=== PATIENT | female | born 1935 | race Caucasian/White ===

== ENCOUNTER 2016-11-05 17:59 | Observation (INO) | payer MEDICARE, OTHER ==
[~2016-11-05] VITALS: Ht 162.6 cm; Wt 68.6 kg
[2016-11-05 18:06] VITALS: BP 189/103; PULSE 94; RESP 20; O2SAT 96
--- NOTE | 2016-11-05 18:15 | ED.REPORT ---
HPI-Trauma Minor / Fall Date of Service Nov 05, 2016 ED Provider: Amor Carbajal DO Patient is an 81 year old female who presents to the ED via EMS due to a fall that happened a week ago. The patient reports that she has had left hip pain for the past month and her right hip has been progressively worse for the past week. Patient reports that the pain is exacerbated by movement and radiates into her lower back. She has been to other EDs three times in the past month. Nursing Notes Stated Complaint: GLF Chief Complaint: Extremity Trauma Nursing Notes Reviewed: Yes Allergies: Coded Allergies: No Known Allergies (Unverified , 11/05/16) Scheduled Acetaminophen (Acetaminophen) 500 Mg Tablet 500 MG PO BIDWM Alendronate Sodium (Fosamax) 70 Mg Tablet 70 MG PO WEEKLY SUNDAYS Aspirin Chew (Aspirin Chew) 81 Mg Chew 81 MG PO QAM Bifidobacterium Infantis (Align) 4 Mg Capsule 4 MG PO DAILYWL Carbidopa/Levodopa 25-100 mg (Carbidopa/Levodopa 25-100 mg) 1 Each Tablet 2 TABLET PO Q3H 8X/DAY: 00, 03, 06, 09, 12, 15, 18, 21 Carvedilol (Carvedilol) 3.125 Mg Tablet 3.125 MG PO BIDWM Cholecalciferol (Vitamin D3) (Vitamin D3) 1,000 Unit Tab.chew 1,000 UNIT PO QAM Clopidogrel (Clopidogrel) 75 Mg Tablet 75 MG PO QAM Entacapone (Entacapone) 200 Mg Tablet 200 MG PO Q3H 8X/DAY: 00, 03, 06, 09, 12, 15, 18, 21 Famotidine (Famotidine) 20 Mg Tablet 20 MG PO BIDWM Fentanyl 50 mcg/hr Patch (Fentanyl 50 mcg/hr Patch) 50 mcg/hr Patch.td72 1 PATCH TRANSDERM Q3D Furosemide (Furosemide) 20 Mg Tab 20 MG PO QAM Leflunomide (Leflunomide) 20 Mg Tablet 20 MG PO DAILYWL Multivit with Calcium,Iron,Min (Therapeutic M) 1 Each Tablet 1 EACH PO QAM Oxycodone HCl/Acetaminophen 5-325 (Endocet 5-325) 1 Each Tablet 1 TABLET PO HS Polyethylene Glycol 3350 (Polyethylene Glycol 3350) 17 Gm Powd.pack 17 GM PO QAM Ropinirole ER (Ropinirole XL) 8 Mg Tablet 8 MG PO BIDWM Sennosides (Senna) 8.6 Mg Tablet 8.6 MG PO BID Tizanidine (Tizanidine) 4 Mg Tablet 4 MG PO HS Trazodone (Trazodone) 100 Mg Tablet 50 MG PO HS Scheduled PRN Nystatin (Nystop) 60 Gm Powder 1 APPLIC TP BID PRN PRN RASH General Time Seen by MD: 18:14 Chief Complaint Fall Hx Obtained From: Patient Arrived By: Ambulance Onset Occurred: 1 week ago Symptom Duration: Since onset Caused by: Fall on ground Location: Hip left Hip right Quality: Painful Severity: Current: Moderate Recent Healthcare: Recent doctor visit, Recent hospitalization Past Medical History Past Medical History hip pain Smoking History Unknown if Ever Smoker Social History Other Social History: Good social support, Ambulatory Status Independent Review of Systems Constitutional: Denies: Chills, Fever Respiratory: Denies: Non-productive cough, Shortness of breath, Wheezing Musculoskeletal: Reports: Back pain, Extremity pain Neurologic: Reports: Problem walking, Denies: Numbness, Weakness Complete sys rev & neg: except as marked. Cardiovascular: Denies: Chest pain Physical Exam Initial Vital Signs Vital Signs (First) Date Time Temp Pulse Resp B/P Pulse Ox O2 Delivery O2 Flow Rate FiO2 11/05/16 18:06 36.5 94 20 189/103 96 Room Air Initial VS: Reviewed General/Constitutional: Awake, Alert Distress / Hydration: Positive: Distress moderate Neck: Atraumatic, Supple Head / Eyes: Atraumatic, Normocephalic, PERRL, EOMI Respiratory / Chest: Atraumatic, Breath sounds NL, Breath sounds = bilat, No respiratory distress Cardiovascular: Heart rate NL, Regular rhythm, Heart sounds NL Abdomen: Atraumatic, Soft, Non-tender BACK: lumbar spine tendernesss no skin tears or abrasions UPPER EXTREMITIES: bilateral hip tenderness Skin: Atraumatic, Color NL, No rash, Warm, Dry Neurologic: Oriented X3, Speech NL, No motor deficits, No sensory deficits Psychiatric: Affect NL, Mood NL Interpretation & Diagnostics Interpretation & Diagnostics: HIP/PELVIS XRAY: IMPRESSION: 1. No definite fracture or dislocation. 2. Markedly distended loop of colon in the mid abdomen partially visualized. Recommend dedicated abdominal films and clinical correlation. Dictated by: Antonio Caballero M.D. on 11/05/2016 at 21:29 Approved by: Antonio Caballero M.D. on 11/05/2016 at 21:31 Lab Results Interpretation Result Diagram: 11/05/16 1800 11/05/16 1800 Test 11/05/16 18:00 White Blood Count 4.6th/mm3 (3.8-10.1) Red Blood Count 4.23mil/mm3 (3.90-5.20) Hemoglobin 12.9g/dL (12.0-15.6) Hematocrit 39.4% (35.0-46.0) Mean Corpuscular Volume 93.1fL (81-100) Mean Corpuscular Hemoglobin 30.5pg (27.0-35.0) Mean Corpuscular Hemoglobin Concent 32.7% (32.0-37.0) Red Cell Distribution Width 13.5% (12.3-15.4) Platelet Count 261bil/L (150-400) Neutrophils (%) (Auto) 53.0% (40-74) Lymphocytes (%) (Auto) 32.8% (14-46) Monocytes (%) (Auto) 10.1% (4-12) Eosinophils (%) (Auto) 3.3% (0-5) Basophils (%) (Auto) 0.4% (0-3) Hold Purple Top Tube Received (Received) Hold Blue Top Tube Received (Received) Sodium Level 139mEq/L (134-144) Potassium Level 3.8mEq/L (3.5-5.2) Chloride Level 101mEq/L (97-108) Carbon Dioxide Level 23mmol/L (18-29) Blood Urea Nitrogen 13mg/dL (8-27) Creatinine 0.54mg/dL (0.57-1.00) Estimat Glomerular Filtration Rate 155mL/min (>59) Glucose Level 96mg/dL (60-99) Calcium Level 9.2mg/dL (8.5-10.1) Total Bilirubin 0.6mg/dL (0.0-1.2) Aspartate Amino Transf (AST/SGOT) 14U/L (0-50) Alanine Aminotransferase (ALT/SGPT) 5U/L (0-32) Alkaline Phosphatase 91U/L (25-165) Total Protein 6.7g/dL (6.4-8.4) Albumin 3.4g/dL (3.4-5.0) Procalcitonin 0.33ng/mL (0.00-0.08) Hold Talala Top Tube Received (Received) X-Ray Interpretation Xray Interpretation: IMPRESSION: 1. Postsurgical changes in the lower lumbar spine and chronic compression fracture at L2 redemonstrated. A small posteriorly displaced fragment is again noted along L2 with associated spinal canal narrowing. 2. Moderately distended loop of colon demonstrated with evaluation of the bowel limited on the current study. Recommend correlation clinically and dedicated abdominal study if indicated. Dictated by: Antonio Caballero M.D. on 11/05/2016 at 21:05 Approved by: Antonio Caballero M.D. on 11/05/2016 at 21:09 Study Performed: LUMBAR SPINE Interpretation / Wet Read by: Interpret - Radiologist Re-Eval/Medical Decision Med Decision/Clinical Course The low back pain seems to be quite severe in spite of IV Dilaudid. The x-rays do not show fracture. She does have some dilated loops of bowel however abdomen soft and not at all tender. Her bowel tones are normal. She is going be admitted to the hospital for pain control and probably placement. I put an order for abdominal films as per radiology recommendations. The hospitalist will follow-up with this. Patient will be admitted for pain control and close monitoring. She is admitted in stable condition. Re-Evaluation/Progress : Time of Eval: 20:50 Patient Status: Mild relief Re-Evaluation/Progress Note: Discussed plan for admit. The patient understands and agrees to the plan. All questions were addressed. Consultation : Referral / Consult Name: Ana Laura Esposito DO Consulted With: Hospitalist Call Returned at: 20:45 Level[place]: Agrees with eval, Agrees with plan, Accepts admit Counseled Regarding: Diagnosis, Lab results, Need for admission Discharge & Departure Impression: Primary Impression: Chronic hip pain Laterality: unspecified laterality Qualified Code: M25.559 - Pain in unspecified hip Additional Impression: Chronic back pain Back pain location: low back pain Back pain laterality: unspecified Sciatica presence: unspecified whether sciatica present Qualified Code: M54.5 - Low back pain Disposition: ADMITTED TO HOSPITAL Discharge Condition All VS Reviewed: Yes Condition: Stable Referrals: Char Nunez (PCP) Scribe Attestation Portions of this note were transcribed by Chloe Bull. I, Dr. Carbajal personally performed the history, physical exam and medical decision-making; I reviewed and confirmed the accuracy of the information in the transcribed note. Signed by: Chloe Perez, 11/05/16 and 1835 copies to: Char Nunez Todd P DO Nov 05, 2016 18:15 Natalee Bull Nov 05, 2016 18:35
[2016-11-05 18:58] LABS: BASOPHILS % (AUTO) 0.4 % (0-3); EOSINOPHILS % (AUTO) 3.3 % (0-5); MONOCYTES % (AUTO) 10.1 % (4-12); Mean Corpuscular Hemoglobin 30.5 pg (27.0-35.0); Mean Corpuscular Volume 93.1 fL (81-100); Platelet Count 261 bil/L (150-400)
[2016-11-05 19:42] VITALS: BP 189/102; PULSE 92; RESP 16; O2SAT 94
[2016-11-05] MEDS: Sodium Chloride LOK Flush 10 mL Syringe IVFLUSH SCH (20:48)
[2016-11-05] MEDS: HYDROmorphone 0.5 mg/0.5 mL iSecure Syringe IVPUSH PRN ×2 (20:48→23:05)
--- NOTE | 2016-11-05 21:11 | DRSVH ---
PROCEDURE: X-RAY LUMBAR SPINE, 2 OR 3 VIEW INDICATIONS: back pain TECHNIQUE: 3 views of the lumbar spine were acquired. COMPARISON: [facility], CR, XR LUMBAR SPI COMP W FL EX 7VW, 07/02/2015, 14:31. [facility], CT, CT LUMBAR SPINE WO CON, 09/27/2015, 13:05. [facility], CR, XR LUMBAR SPINE W FL EX MIN 4VW, 04/28/2015, 12:57. FINDINGS: Bones: 5 [id number] vertebrae are present. There is osteopenia limiting evaluation. Postsurgic al changes are demonstrated status post posterior fixation and fusion at L4-S1. The surgical hardwar e appears intact. Mild retrolisthesis is demonstrated at L1-L2 and L2-L3. A compression fracture of L2 vertebral body is redemonstrated, similar in appearance to the prior CT. There is mild posterior displacement of a fracture fragment along the inferior endplate of L2 with associated narrowing of t he spinal canal. There is mild to moderate posterior disc space narrowing at L3-L4 and mild multilev el narrowing elsewhere. Soft tissues: Overlying bowel gas demonstrates a markedly distended loop of colon in the mid abdomen . IMPRESSION: 1. Postsurgical changes in the lower lumbar spine and chronic compression fracture at L2 redemonstra rai. A small posteriorly displaced fragment is again noted along L2 with associated spinal canal elli rowing. 2. Moderately distended loop of colon demonstrated with evaluation of the bowel limited on the curre nt study. Recommend correlation clinically and dedicated abdominal study if indicated. Dictated by: Antonio Caballero M.D. on 11/05/2016 at 21:05 Approved by: Antonio Caballero M.D. on 11/05/2016 at 21:09
[2016-11-05 21:24] VITALS: BP 192/100; PULSE 95; RESP 20; O2SAT 96
--- NOTE | 2016-11-05 21:33 | DRSVH ---
PROCEDURE: X-RAY PELVIS WITH BILATERAL HIPS ([id number]) INDICATIONS: back pain TECHNIQUE: AP pelvis with frontal and lateral views of the hips COMPARISON: [facility], CR, XR PELVIS W LATERAL HIP LT, 10/12/2015, 11:11. FINDINGS: Bones: There is osteopenia. No definite fractures or dislocations. There is mild axial joint space narrowing in the hips bilaterally. Pelvic ring appears intact. There are postsurgical changes in t he lower lumbar spine status post posterior fixation at the lumbosacral junction. No suspicious bony lesions. Soft tissues: The visualized bowel gas pattern demonstrates a markedly distended loop of colon in th e mid abdomen. IMPRESSION: 1. No definite fracture or dislocation. 2. Markedly distended loop of colon in the mid abdomen partially visualized. Recommend dedicated ab dominal films and clinical correlation. Dictated by: Antonio Caballero M.D. on 11/05/2016 at 21:29 Approved by: Antonio Caballero M.D. on 11/05/2016 at 21:31
[2016-11-05] MEDS ORDERED: FENT1PAT9 TRANSDERM (21:39)
[2016-11-05] MEDS ORDERED: FENT1PAT6 TRANSDERM (21:39)
[2016-11-05] MEDS ORDERED: CARV3.122 PO (21:43)
[2016-11-05] MEDS ORDERED: OXYC-407 PO (21:43)
[2016-11-05] MEDS ORDERED: NYST60PO TP (21:43)
[2016-11-05] MEDS ORDERED: TIZA4TAB4 PO (21:43)
[2016-11-05] MEDS ORDERED: TRAZ-118 PO (21:43)
[2016-11-05] MEDS ORDERED: ROPI8TAB3 PO (21:43)
[2016-11-05] MEDS ORDERED: ENTA200T6 PO (21:43)
[2016-11-05] MEDS ORDERED: LEFL20TA18 PO (21:43)
[2016-11-05] MEDS ORDERED: Ondansetron 2 mg/mL 2 mL Inj IVPUSH PRN (21:45)
[2016-11-05] MEDS ORDERED: CARB1TAB14 PO (21:45)
[2016-11-05] MEDS ORDERED: Polyethylene Glycol (PEG) 17 Gm Powder PO PRN (21:45)
[2016-11-05] MEDS ORDERED: FAMO20TA4 PO (21:45)
[2016-11-05] MEDS ORDERED: Alum-Mag Hydrox-Simeth 30 mL Suspension PO PRN (21:45)
[2016-11-05] MEDS ORDERED: CLOP75TA28 PO (21:46)
[2016-11-05] MEDS ORDERED: FUR20 PO (21:46)
[2016-11-05] MEDS ORDERED: ALEN70TA2 PO (21:46)
[2016-11-05] MEDS ORDERED: BIFI4CAP PO (21:47)
[2016-11-05] MEDS ORDERED: ACET-171 PO (21:47)
[2016-11-05] MEDS ORDERED: ASPI81TA3 PO (21:49)
[2016-11-05] MEDS ORDERED: MULT-140 PO (21:49)
[2016-11-05] MEDS ORDERED: POLY17PO2 PO (21:49)
[2016-11-05] MEDS ORDERED: SENN-133 PO (21:49)
[2016-11-05] MEDS ORDERED: CHOL10008 PO (21:49)
[2016-11-05 21:50] VITALS: BP 213/114; PULSE 94; RESP 18; O2SAT 97
[2016-11-05 22:02] VITALS: BP 200/121; PULSE 99
--- NOTE | 2016-11-05 22:03 | PCM.HPMED ---
Subjective Date of Service Nov 05, 2016 Primary Provider: Admitting Physician: Ana Laura Esposito DO Primary Care Physician: Char Nunez Attending Physician: Ana Laura Esposito DO Admit Status: From the Emergency Department Chief Complaint: back pain History of Present Illness: 81-year-old female with past medical history remarkable for chronic nonhealing L2 compression fracture presents with worsening lower back pain. The patient last fell one week ago reportedly. The patient states that the back pain she currently has worse than normal but is consistent with the chronic lower back pain. However she states that within the last several months the back pain is radiating into her right leg which is new, she has had chronic back pain which radiates into her left leg. The patient does not recall who performed her lumbar surgeries and she is unsure if she has had multiple procedures or just one lumbar surgery. The patient was seen in [facility] 3 times in early October for worsening lower back pain with an increase in her fentanyl patch to 50 g. The patient denies any fever or chills or worsening night sweats. The patient denies any loss of bowel control or saddle paresthesias. The patient denies any worsening unilateral weakness or trouble with coordination. Review of Systems: A comprehensive review of systems was obtained and all are negative except for what is included in the history of present illness. Allergies Coded Allergies: No Known Allergies (Unverified , 11/05/16) Home Medications Per PCP records in [facility] acetaminophen 325 mg tablet twice a day Align 4 mg capsule at noon aspirin 81 mg tablet CARBIDOPA-LEVODOPA 25-100 TAB TAKE TWO TABLETS BY MOUTH EVERY 3 HOURS DAILY. carvedilol 3.125 mg tablet 2 times every day with food for high blood pressure. clopidogrel 75 mg tablet every day to prevent blood clots ENTACAPONE 200 MG TABLET 8 TIMES A DAY WITH CARBIDOPA/LEVODOPA FOR TREMOR famotidine 20 mg tablet 2 times every day LASIX 20 MG TABLET TAKE ONE TABLET BY MOUTH DAILY leflunomide 20 mg tablet every day Miralax 17 gram/dose oral powder take (17G) by oral route every day mixed with 8 oz. water, juice, soda, coffee or tea for stool softener/laxative MULTIVITAMIN 1 tab po qd ropinirole ER 8 mg tablet,extended release 24 hr TAKE TWO TABLETS BY MOUTH DAILY Senokot-S 8.6 mg-50 mg tablet take 2 tablet by oral route every day tizanidine 4 mg tablet take 1 tablet by oral route every bedtime trazodone 100 mg tablet TAKE 1/2 TABLET AT BEDTIME AFTER EATING. IF YOU WAKE UP DURING NIGHT, TAKE THE SECOND HALF PMH Coronary artery disease Chronic systolic heart failure Parkinson's disease Osteoporosis Rheumatoid arthritis CVA Nonhealing Compression fracture of L2 vertebrae Lumbar Spinal stenosis Fracture of C2 cervical vertebrae Surgical History right Ankle Repair 1946 left shoulder replacement left knee replacement 5 Hernia repairs 4 right and 1 left L4 through S1 lumbar posterior fixation and fusion Family History Mother had coronary artery disease and of metastatic uterine cancer Father's health unknown No siblings 12 adult children all reportedly healthy Social History Occupation: retired Hx Alcohol Use: No Hx Substance Use: No Smoking Status: Unknown if Ever Smoker Living Arrangement: Assisted Living Exam Vital Signs Vital Sign - Last Date Time Temp Pulse Resp B/P Pulse Ox O2 Delivery O2 Flow Rate FiO2 11/05/16 21:50 36.9 94 18 213/114 97 Room Air Exam Gen.: Elderly female in acute distress lying in bed Eyes: Pupils equal round and reactive to light, extraocular motion intact anicteric sclera noninjected conjunctiva HENT: Normocephalic atraumatic, moist mucous membranes without central cyanosis , without cobblestoning mucosa Neck: Supple, trachea midline, no JVD Cardiovascular: Regular rate and rhythm, no murumrs rubs or gallops noted, PMI nondisplaced Lungs: Clear to auscultation bilaterally without wheezing rales or rhonchi GI: Tender in the left lower quadrant, normal active bowel sounds, nondistended , tympanic to percussion Extremities: Pulses intact and radial and dorsalis pedis bilaterally, Capillary refill less than 3 seconds, no cyanosis clubbing or edema noted, onychomycosis on toes Skin: Warm and dry : No Borrero in place Neuro: No focal neurologic deficits, 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 There is osteopenia limiting evaluation. Postsurgical changes are demonstrated status post posterior fixation and fusion at L4-S1. The surgical hardware appears intact. Mild retrolisthesis is demonstrated at L1-L2 and L2-L3. A compression fracture of L2 vertebral body is redemonstrated, similar in appearance to the prior CT. There is mild posterior displacement of a fracture fragment along the inferior endplate of L2 with associated narrowing of the spinal canal. There is mild to moderate posterior disc space narrowing at L3-L4 and mild multilevel narrowing elsewhere. IMPRESSION: 1. Postsurgical changes in the lower lumbar spine and chronic compression fracture at L2 redemonstrated. A small posteriorly displaced fragment is again noted along L2 with associated spinal canal narrowing. 2. Moderately distended loop of colon demonstrated with evaluation of the bowel limited on the current study. Recommend correlation clinically and dedicated abdominal study if indicated. Dictated by: Antonio Caballero M.D. on 11/05/2016 at 21:05 Approved by: Antonio Caballero M.D. on 11/05/2016 at 21:09 X-RAY PELVIS WITH BILATERAL HIPS ([id number]) IMPRESSION: 1. No definite fracture or dislocation. 2. Markedly distended loop of colon in the mid abdomen partially visualized. Recommend dedicated abdominal films and clinical correlation. Dictated by: Antonio Caballero M.D. on 11/05/2016 at 21:29 Approved by: Antonio Caballero M.D. on 11/05/2016 at 21:31 Assessment & Plan 81-year-old female with past medical history remarkable for chronic nonhealing L2 compression fracture presents with worsening lower back pain. # Intractable lower back pain likely secondary to chronic L2 compression fracture - Patient has a history of chronic lower back pain likely secondary to spinal stenosis at L2 from nonhealing compression fracture first noted on CT scan April 2015 - No significant notable focal neurologic deficits noted patient denies fever or chills consistent with epidural abscess - Patient was recently started on increased fentanyl patch 50 g/hr 2 days prior - Continue outpatient fentanyl patch 50 g daily - Continue outpatient oxycodone every 8 when necessary, records indicate Percocet 5-325 one in the morning and 1 in the evening - Continue outpatient Tylenol 325 4 times a day WA - Hydromorphone 0.5 mg every 3 hours PRN - MRI ordered in the AM # Parkinson's disease - Continue outpatient carbidopa levodopa 25-100 q 3 hours - Continue outpatient entacapone 200mg q3 hours # Chronic systolic heart failure - Continue outpatient carvedilol 3.125 mg twice a day - Continue outpatient Lasix 20 mg daily # Hypertension - Continue outpatient carvedilol 3.125 mg twice a day - Pain control as described above - Labetalol 10mg IV available when necessary for high blood pressure systolic greater than 160 # History of CVA - Continue outpatient baby aspirin - Continue outpatient Plavix # History of restless leg syndrome - Continue outpatient ropinirole XL DVT prophylaxis: Heparin 5000units TID GI Prophylaxis: Famotidine 20mg BID Code status Full The patient is admitted to observation status given presenting symptoms likely diagnosis, possible complication and required treatments expected length of stay is less than 2 midnights. Pain Evaluation: Adequate Pain Control GI Prophylaxis: H2 alissa VTE Prophylaxis Indicated: Meets Criteria for Anticoag Therapy VTE Prophylaxis: Sub-Q Heparin (Unfractionated) Resuscitation Status: CPR: Attempt Resuscitation Attending Statement The patient was seen and examined together with house staff on 11/05/2016 and I agree with the history, exam and plan as outlined in the note above. Mikey Locke DO Nov 05, 2016 22:02 Ana Laura Esposito DO Nov 06, 2016 02:25
[2016-11-05 22:14] VITALS: PULSE 94
--- NOTE | 2016-11-05 22:50 | NUR ---
Patch Fentynal patch on Left shoulder, posterior. Removed previous patches, one on each side lower back.
[2016-11-05] MEDS ORDERED: Labetalol 5 mg/mL 4 mL Inj IVPUSH PRN (23:25)
[2016-11-05] MEDS ORDERED: ROPINIROLE 2 MG PO SCH (23:34)
--- NOTE | 2016-11-05 23:41 | NUR ---
admit Pt came from ED on a gurney, with spouse and all belongings. Pain under control at time, BP 213/114, Dr romero and informed, EKG done. Pt alert and oriented x 3, pleasant and cooperative with cares. Spouse staying in room for the night. Will continue to monitor.
[2016-11-06] VITALS (7 sets, daily range): BP systolic 124–197; BP diastolic 70–103; PULSE 69–98; RESP 13–19; O2SAT 91–97
[2016-11-06] MEDS: Entacapone 200 mg Tablet PO SCH ×8 (00:10→21:10)
[2016-11-06] MEDS: Heparin 5,000 Unit/mL Inj SUBQ SCH ×3 (00:17→16:30)
--- NOTE | 2016-11-06 04:41 | NUR ---
BP Pt BP continues to drop, currently 124/70. 3.125 mg Coreg given, no additional BP medications given, will continue to monitor.
--- NOTE | 2016-11-06 05:05 | NUR ---
Pain Pt complained of hip pain, 5mg Roxicodone given and heat therapy pad used to assist with pain. Will monitor pain level.
[2016-11-06 05:53] LABS: APPEARANCE,URINE CLEAR (CLEAR,HAZY); COLOR,URINE DARK YELLOW (YELLOW); OCCULT BLOOD,URINE NEGATIVE (NEGATIVE); UROBILINOGEN,URINE NORMAL (NORMAL)
[2016-11-06] MEDS: HYDROmorphone 0.5 mg/0.5 mL iSecure Syringe IVPUSH PRN ×2 (07:57→10:54)
[2016-11-06] MEDS: Sodium Chloride LOK Flush 10 mL Syringe IVFLUSH SCH ×2 (08:11→16:30)
--- NOTE | 2016-11-06 09:11 | NUR ---
Pt off floor Patient off floor to x-ray at 0905 in wheelchair. hematology technician aware. Chart with patient.
--- NOTE | 2016-11-06 10:43 | NUR ---
Case Management: GAYLE given and explained to . Marlene ALATORRERN
--- NOTE | 2016-11-06 11:31 | DRSVH ---
PROCEDURE: X-RAY ACUTE ABDOMINAL SERIES ([id number]) INDICATIONS: back pain, abnormal bowel loops TECHNIQUE: One view chest and two views of the abdomen were acquired. COMPARISON: [facility], CR, XR ABDOMEN ACUTE SERIES, 05/06/2016, 8:13 AM. [facility], CR, XR LUMBAR SPINE 2 OR 3VW, 11/05/2016, 19:56. FINDINGS: Surgical changes and devices: Posterior fixation hardware again seen in the lower lumbar spine. Left shoulder arthroplasty. Multiple healed left rib fractures. Chest: Lungs are clear. Heart size is normal. No pleural effusions. No pneumoperitoneum. Abdomen: There is moderate gaseous distention of the stomach otherwise gasless stool distributed thro ughout the colon as well as gas seen within multiple small bowel loops. No pneumatosis or bowel wall thickening. No pneumoperitoneum. Bones: No suspicious bony lesions. Severe right shoulder arthropathy. IMPRESSION: 1. Moderate gastric distention noted. 2. Nonspecific bowel gas pattern. If patient's symptoms persist, recommend repeat imaging or CT. Dictated by: Gabe TRIANA Interpreted: Lorelei Aguilera MD on 11/06/2016 at 9:33 Approved by: Lorelei Aguilera M.D. on 11/06/2016 at 11:29
--- NOTE | 2016-11-06 14:03 | DRSVH ---
PROCEDURE: MRI LUMBAR SPINE WITH AND WITHOUT CONTRAST ([id number]) INDICATIONS: worsening back pain TECHNIQUE: Noncontrast sagittal T1 spin echo and T2 fast spin echo, sagittal STIR, axial T1 and T2 fast spin ech o through the lumbar spine. In cases with scoliosis, additional coronal T2 fast spin echo may be per formed. After the administration of contrast, sagittal and axial T1 spin echo with fat saturation th rough the lumbar spine. COMPARISON: [facility], CR, XR LUMBAR SPINE 2 OR 3VW, 11/05/2016, 19:56. [facility], CT, CT LUMBAR SPINE WO CON, 09/27/2015, 13:05. FINDINGS: Image quality: Diagnostic. Spinal Cord: The imaged portions of the spinal cord are normal in size and signal. The conus medulla ris is normal in position. Paraspinous Soft Tissues: No paravertebral masses. Image soft tissues of the abdomen and pelvis are grossly unremarkable; however, not adequately evaluated on this exam. The abdominal aorta is normal in course and caliber. Bones: There is prominent compression deformity involving the L2 vertebral body with extensive inferi or endplate irregularity. Prominent retropulsed bony fragment is again identified extending into the central canal with severe associated central canal stenosis, which may be more prominent on the curr ent study given additional facet arthropathy. Otherwise, the remainder of the vertebral body heights and marrow signal are within normal limits. There is no acute fracture or dislocation. Postoperative changes are present related to an L4-S1 posterior lumbar fusion procedure. A 5 on S1 g rade 1/2 spondylolisthesis is again noted, unchanged. No suspicious osseous enhancement is identified on the postcontrast images. Degenerative changes of the imaged upper sacroiliac joints are present. Please note that evaluation of the neural foramina for epidural enhancement involving the lower lum bar levels as limited related to metallic artifact. Lower thoracic levels: Bony fusion along the anterior margins of the T10 and T11 vertebral bodies is noted. Mild degenerative changes involving the imaged lower thoracic levels are present. Small Tarl ov cysts are evident on the right at the T10/T11 and T12/L1 levels. There is no central canal or deysi ral foraminal narrowing at these levels. L1-L2: There is disc desiccation and diffuse disc bulge with associated moderate facet arthropathy. No central canal stenosis or right neural foraminal narrowing is present. There is mild left neural foraminal stenosis. L2-L3: Extensive degenerative disc changes are present at this level. There is a prominent retropuls ed bony fragment. Severe facet arthropathy and ligamentum flavum laxity is present at this level. T hese findings result in severe central canal stenosis. There is also severe left and moderate right neural foraminal narrowing. L3-L4: There is disc desiccation and diffuse disc bulge with associated severe facet arthropathy. L4 laminectomy changes are present. There is no central canal stenosis. However, there is prominent r ight neural foraminal narrowing, which may be related to a not well-seen right foraminal/lateral disc bulge. Moderate left neural foraminal narrowing is present. L4-L5: Postoperative changes are present at this level with bony fusion posteriorly. Severe facet ar throsis is noted at this level. Laminectomy changes are present. There is no central canal stenosis . However, there appears to be at least mild bilateral neural foraminal narrowing. L5-S1: Postoperative changes at this level are present with bony fusion. There is no central canal s tenosis. There is mild bilateral neural foraminal narrowing. IMPRESSION: 1. Postoperative changes related to an L4-S1 posterior lumbar fusion. 2. Chronic L2 compression deformity with a prominent retropulsed bone fragment. Increasing facet ar thropathy at this level results in severe central canal stenosis. No new compression fractures. 3. Probable right foraminal/lateral disc protrusion at L3-L4 and results in severe right central can al stenosis. 4. No disc extrusions. 5. Advanced multilevel degenerative changes of the lumbar spine are primarily evident involving the facet joints resulting in multilevel neural foraminal narrowing. 6. Metallic limits evaluation for epidural enhancement. No definitive epidural enhancement is appre ciated. Dictated by: Henry Noguera M.D. on 11/06/2016 at 13:40 Approved by: Henry Noguera M.D. on 11/06/2016 at 14:01
--- NOTE | 2016-11-06 14:20 | NUR ---
Confusion / tele & IV Patient has increasing confusion and slight agitation during late morning and early afternoon. Requests primary RN to sit in bed with her, expresses confusion about purpose of medical gloves, removes telemetry, ID band and discontinues IV. Patient largely able to be calmed and redirected by primary RN. Patient positioned for comfort offered ice cream and warm blanket. Primary MD ([place]) is aware and agrees that patent can temporarily go without an IV and telemetry monitoring. Bed low and locked, call light in reach, bed alarm on for safety, family members at bedside, care and frequent rounding ongoing.
--- NOTE | 2016-11-06 14:49 | NUR ---
Social Work-initial assessment: Data:See initial assessment. Pt is a 81 y/o female who was admitted on 11/05/16 for intractable back pain per H&P. Pt's insurance is [employer] and PCP is BUBBA Squires. EMR reviewed. YANIQUE met with pt and daughter Nanette [phone] at bedside to discharge planning,SW role explained. Daughter confirms that pt resides at [facility] in [place] with her . Daughter confirms that provides care for pt at home. Pt uses a w/c at baseline and does not drive. Pt has had HH and has been to [facility] prior. 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 SW discussed DPOA/ advanced directive, daughter confirms this has been completed. Daughter states pt has been declining in physical and mental status for the last little bit. Daughter encouraged SW to speak with , who is currently not at the hospital. SW to follow up with later today or tomorrow. SW placed a call to [facility] and confirmed pt is on the independent side. Pt to likely benefit from PT evaluation. SW provided phone number and plan on white board in room. SW will continue to follow. Assessment:Pt who resides at home with . Plan:Pt to discharge back to [facility]. Pt to benefit form PT evaluation. SW to await MD orders. SW will continue to follow. EZIO Mccall Addendum: 11/06/16 at 1512 by CLIF MANUEL SS Amended: Links added.
--- NOTE | 2016-11-06 16:43 | NUR ---
spiritual care: pt request 2 brief in room visits. pt rec. care or asleep. Family members at bedside supportive. report that pt would appreciate congregational visits and was presently quite confused.
[2016-11-06] MEDS ORDERED: Ketorolac 15 mg/mL Inj IVPUSH PRN (17:50)
--- NOTE | 2016-11-06 22:15 | NUR ---
Discharge Pt discharged to [facility] transport unit. Report given to nurse at new facility. Pt alert and oriented x4, took all belongings with her. All meds due given as scheduled. Report given to transport unit EMT.
--- NOTE | 2016-11-07 00:04 | PCM.DC.MED ---
Discharge Summary Date of Service Nov 06, 2016 Dates of Hospitalization Date of Hospital Admission Nov 05, 2016 at 21:16 Date of Discharge: Nov 06, 2016 Providers: Admitting Physician: Ana Laura Esposito DO Primary Care Physician: Char Nunez Attending Physician: Ana Laura Esposito DO Diagnosis at Time of Discharge Diagnosis at Time of Discharge Intractable lumbar spine pain Procedures XRay, CTs & MRIs X-RAY LUMBAR SPINE, 2 OR 3 VIEW FINDINGS: Bones: 5 [id number] vertebrae are present. There is osteopenia limiting evaluation. Postsurgical changes are demonstrated status post posterior fixation and fusion at L4-S1. The surgical hardware appears intact. Mild retrolisthesis is demonstrated at L1-L2 and L2-L3. A compression fracture of L2 vertebral body is redemonstrated, similar in appearance to the prior CT. There is mild posterior displacement of a fracture fragment along the inferior endplate of L2 with associated narrowing of the spinal canal. There is mild to moderate posterior disc space narrowing at L3-L4 and mild multilevel narrowing elsewhere. IMPRESSION: 1. Postsurgical changes in the lower lumbar spine and chronic compression fracture at L2 redemonstrated. A small posteriorly displaced fragment is again noted along L2 with associated spinal canal narrowing. 2. Moderately distended loop of colon demonstrated with evaluation of the bowel limited on the current study. Recommend correlation clinically and dedicated abdominal study if indicated. Dictated by: Antonio Caballero M.D. on 11/05/2016 at 21:05 Approved by: Antonio Caballero M.D. on 11/05/2016 at 21:09 X-RAY PELVIS WITH BILATERAL HIPS ([id number]) IMPRESSION: 1. No definite fracture or dislocation. 2. Markedly distended loop of colon in the mid abdomen partially visualized. Recommend dedicated abdominal films and clinical correlation. Dictated by: Antonio Caballero M.D. on 11/05/2016 at 21:29 Approved by: Antonio Caballero M.D. on 11/05/2016 at 21:31 Brief History 81-year-old female with past medical history remarkable for chronic nonhealing L2 compression fracture presents with worsening lower back pain. The patient last fell one week ago reportedly. The patient states that the back pain she currently has worse than normal but is consistent with the chronic lower back pain. However she states that within the last several months the back pain is radiating into her right leg which is new, she has had chronic back pain which radiates into her left leg. The patient does not recall who performed her lumbar surgeries and she is unsure if she has had multiple procedures or just one lumbar surgery. The patient was seen in [facility] 3 times in early October for worsening lower back pain with an increase in her fentanyl patch to 50 g. The patient denies any fever or chills or worsening night sweats. The patient denies any loss of bowel control or saddle paresthesias. The patient denies any worsening unilateral weakness or trouble with coordination. Hospital Course 81-year-old female with past medical history remarkable for chronic nonhealing L2 compression fracture presents with worsening lower back pain. # Intractable lower back pain likely secondary to chronic L2 compression fracture - Patient has a history of chronic lower back pain likely secondary to spinal stenosis at L2 from nonhealing compression fracture first noted on CT scan April 2015 - No significant notable focal neurologic deficits noted patient denies fever or chills consistent with epidural abscess - Patient was recently started on increased fentanyl patch 50 g/hr 2 days prior - Continue outpatient fentanyl patch 50 g daily - Continue outpatient oxycodone every 8 when necessary, records indicate Percocet 5-325 one in the morning and 1 in the evening - Continue outpatient Tylenol 325 4 times a day WA - Hydromorphone 0.5 mg every 3 hours PRN - MRI shows severe central canal stenosis at the area of L2 where the patient has suffered a chronic compression fracture. Patient also has canal stenosis at L3 and L4. I discussed these findings with neurosurgeon Dr. Naidu at [facility] who recommended the patient be transferred to [facility] for evaluation of possible surgery to relieve her pain and discomfort. I contacted the hospitalist spinner concrete pipe Dr. Chanelle Dooley and she agreed to accept the patient in transfer. # Parkinson's disease - Continue outpatient carbidopa levodopa 25-100 q 3 hours - Continue outpatient entacapone 200mg q3 hours # Chronic systolic heart failure - Continue outpatient carvedilol 3.125 mg twice a day - Continue outpatient Lasix 20 mg daily # Hypertension - Continue outpatient carvedilol 3.125 mg twice a day - Pain control as described above - Labetalol 10mg IV available when necessary for high blood pressure systolic greater than 160 # History of CVA - Continue outpatient baby aspirin - Continue outpatient Plavix # History of restless leg syndrome - Continue outpatient ropinirole XL DVT prophylaxis: Heparin 5000units TID GI Prophylaxis: Famotidine 20mg BID Code status Full Disposition: Patient will be transferred to [facility] for neurosurgical evaluation by Dr. Naidu who has agreed to see the patient consultation and. patient will be transferred to [facility] hospitalist Dr. Chanelle Dooley Exam Vital Signs (Last) Date Time Temp Pulse Resp B/P Pulse Ox O2 Delivery O2 Flow Rate FiO2 11/06/16 20:27 69 19 174/92 94 Room Air 11/06/16 14:00 36.6 Exam General: On IV Dilaudid patient was quite confused. After she pulled out her IV and did not receive any further IV Dilaudid she is much more lucid. HEENT: Head is atraumatic and normocephalic. Eyes: Pupils are equally round and reactive to light and accommodation. Extraocular muscles are intact. Sclera are white, anicteric. Subconjunctival mucosa is pink. Ears and nose are unremarkable. Oropharynx: There is no mucosal lesions, there is no thrush, there is no pharyngitis. Neck: Is supple, there are no nodes, or masses or tenderness. Chest: Is clear to auscultation and percussion. There are no rales, rhonchi, wheezes or rubs. Heart: Rate, rhythm is regular. There is no murmur, rub or gallop. Abdomen: Good bowel sounds are present. Abdomen is soft, nontender, no organomegaly or masses were appreciated. Extremities: Are symmetrical and well perfused. There is no edema, there is no cellulitis, no rash. Neurologic: There are no focal neurological deficits. Cranial nerves II through XII are intact. There are no sensory or motor deficits. However, due to patient's intractable back pain full neurological exam was not performed. She is able to move her lower extremities equally ever again full neurologic exam was not performed due to the patient's discomfort. Psychiatric: Patients mood is calm and shows no sign of agitation. Genital: Deferred Rectal: Deferred Test 11/05/16 18:00 11/06/16 04:35 White Blood Count 4.6th/mm3 (3.8-10.1) Red Blood Count 4.23mil/mm3 (3.90-5.20) Hemoglobin 12.9g/dL (12.0-15.6) Hematocrit 39.4% (35.0-46.0) Mean Corpuscular Volume 93.1fL (81-100) Mean Corpuscular Hemoglobin 30.5pg (27.0-35.0) Mean Corpuscular Hemoglobin Concent 32.7% (32.0-37.0) Red Cell Distribution Width 13.5% (12.3-15.4) Platelet Count 261bil/L (150-400) Neutrophils (%) (Auto) 53.0% (40-74) Lymphocytes (%) (Auto) 32.8% (14-46) Monocytes (%) (Auto) 10.1% (4-12) Eosinophils (%) (Auto) 3.3% (0-5) Basophils (%) (Auto) 0.4% (0-3) Hold Purple Top Tube Received (Received) Hold Blue Top Tube Received (Received) Sodium Level 139mEq/L (134-144) Potassium Level 3.8mEq/L (3.5-5.2) Chloride Level 101mEq/L (97-108) Carbon Dioxide Level 23mmol/L (18-29) Blood Urea Nitrogen 13mg/dL (8-27) Creatinine 0.54mg/dL (0.57-1.00) Estimat Glomerular Filtration Rate 155mL/min (>59) Glucose Level 96mg/dL (60-99) Calcium Level 9.2mg/dL (8.5-10.1) Total Bilirubin 0.6mg/dL (0.0-1.2) Aspartate Amino Transf (AST/SGOT) 14U/L (0-50) Alanine Aminotransferase (ALT/SGPT) 5U/L (0-32) Alkaline Phosphatase 91U/L (25-165) Total Protein 6.7g/dL (6.4-8.4) Albumin 3.4g/dL (3.4-5.0) Procalcitonin 0.33ng/mL (0.00-0.08) Hold [place] Top Tube Received (Received) Urine Color Dark yellow (YELLOW) Urine Appearance Clear (CLEAR,HAZY) Urine pH 6.0 (5.0-8.0) Urine Specific [place] 1.015 (1.003-1.035) Urine Protein Negativemg/dL (NEG,TRACE) Urine Glucose (UA) Negativemg/dL (NEGATIVE) Urine Ketones 15mg/dL (NEGATIVE) Urine Occult Blood Negative (NEGATIVE) Urine Nitrite Negative (NEGATIVE) Urine Bilirubin Negative (NEGATIVE) Urine Urobilinogen Normalmg/dL (NORMAL) Urine Leukocyte Esterase Small (NEGATIVE) Urine RBC 0-2/hpf (0-2) Urine WBC 6-10/hpf (0-5) Urine Epithelial Cells Many/hpf (NONE-MOD) Urine Crystals None seen (NONE SEEN) Urine Bacteria None/hpf (NONE-FEW) Urine Hyaline Casts None/lpf (NONE) Urine Granular Casts None seen (NONE SEEN) Urine Waxy Casts None seen (NONE SEEN) Urine Red Blood Cell Casts None seen (NONE SEEN) Urine White Blood Cell Casts None seen (NONE SEEN) Urine Mucus Present (None Seen) Urine Trichomonas None seen (NONE SEEN) Urine Yeast None (NONE SEEN) Urine Culture Reflexed Indicated Discharge Medications Discharge Medications Acetaminophen (Acetaminophen) 500 Mg Tablet 500 MG PO BIDWM (Reported) Alendronate Sodium (Fosamax) 70 Mg Tablet 70 MG PO WEEKLY (Reported) SUNDAYS Aspirin Chew (Aspirin Chew) 81 Mg Chew 81 MG PO QAM (Reported) Bifidobacterium Infantis (Align) 4 Mg Capsule 4 MG PO DAILYWL (Reported) Carbidopa/Levodopa 25-100 mg (Carbidopa/Levodopa 25-100 mg) 1 Each Tablet 2 TABLET PO Q3H (Reported) 8X/DAY: 00, 03, 06, 09, 12, 15, 18, 21 Carvedilol (Carvedilol) 3.125 Mg Tablet 3.125 MG PO BIDWM (Reported) Cholecalciferol (Vitamin D3) (Vitamin D3) 1,000 Unit Tab.chew 1,000 UNIT PO QAM (Reported) Clopidogrel (Clopidogrel) 75 Mg Tablet 75 MG PO QAM (Reported) Entacapone (Entacapone) 200 Mg Tablet 200 MG PO Q3H (Reported) 8X/DAY: 00, 03, 06, 09, 12, 15, 18, 21 Famotidine (Famotidine) 20 Mg Tablet 20 MG PO BIDWM (Reported) Fentanyl 50 mcg/hr Patch (Fentanyl 50 mcg/hr Patch) 50 mcg/hr Patch.td72 1 PATCH TRANSDERM Q3D (Reported) Furosemide (Furosemide) 20 Mg Tab 20 MG PO QAM (Reported) Leflunomide (Leflunomide) 20 Mg Tablet 20 MG PO DAILYWL (Reported) Multivit with Calcium,Iron,Min (Therapeutic M) 1 Each Tablet 1 EACH PO QAM ( Reported) Oxycodone HCl/Acetaminophen 5-325 (Endocet 5-325) 1 Each Tablet 1 TABLET PO HS ( Reported) Polyethylene Glycol 3350 (Polyethylene Glycol 3350) 17 Gm Powd.pack 17 GM PO QAM (Reported) Ropinirole ER (Ropinirole XL) 8 Mg Tablet 8 MG PO BIDWM (Reported) Sennosides (Senna) 8.6 Mg Tablet 8.6 MG PO BID (Reported) Tizanidine (Tizanidine) 4 Mg Tablet 4 MG PO HS (Reported) Trazodone (Trazodone) 100 Mg Tablet 50 MG PO HS (Reported) As needed Nystatin (Nystop) 60 Gm Powder 1 APPLIC TP BID PRN PRN RASH (Reported) Followup Plan Disposition: Patient is being transferred to [facility] for neurosurgical evaluation by Dr. Naidu. Follow-up Provider: Char Nunez Follow-up with PCP in: 1 week Time spent Time spent on discharging this patient was greater than 35 minutes, over half of which was involved in counseling and coordination of care. Melvin Mcguire MD Nov 07, 2016 00:04
--- NOTE | 2016-11-07 08:44 | NUR ---
Social Work-discharge: SW updated that pt has been transferred to [facility]. No other SW needs. EZIO Mccall
== END 2016-11-06 22:10 | disposition short-term general hospital (02) ==
LOC: EDBD 17:59 → SED 17:59 → EDUNIT# 17:59 → MPC 21:16
PROVIDERS: ADMIT Internal Medicine; ATTEND Internal Medicine
DX: M54.5 Low back pain (principal); G20 Parkinson's disease; I50.22 Chronic systolic (congestive) heart failure; I11.0 Hypertensive heart disease with heart failure; Z86.73 Personal history of transient ischemic attack (TIA), and cerebral infarction without residual deficits; G25.81 Restless legs syndrome; Z79.82 Long term (current) use of aspirin
CPT/HCPCS: 36415; 72100; 72158; 73523; 74022; 80053; 81000; 84145; 85025; 87077; 87086; 87088; 87186; 93005; 96374; 96376; 99285; A9585; G0378; J1170; J1644